=== PATIENT | female | born 1965 | race Caucasian/White ===

== ENCOUNTER 2016-11-15 10:46 | Emergency (ER) | payer OTHER ==
[~2016-11-15 10:46] MED LIST: ABILIFY5 MG PO; BUSPIRONE HCL10 MG PO; ESCITALOPRAM OX20 MG PO; FLOVENT HFA220 MCG INH; GABAPENTIN300 MG; INDERAL EQUIVAL20 MG PO; LISINOPRIL5 MG PO; MECLIZINE HCL25 M1 PO; MIRALAX EQUIVAL17 GM PO; NORCO1 TA1 PO; SYNTHROID100 MCG PO; VENTOLIN HFA IN; VICODIN HP1 TA1 PO; VITAMIN D-31000 UNIT PO
--- NOTE | 2016-11-15 12:07 | ED ORDER SUMMARY ---
..... Patient: MOE ROJAS OrderSheet [facility] VisitID: [id number] [address] [place] [address] 51y, F Registration Date/Time: 11/15/2016 ORDER SHEET Weight: 73.4 kg (stated) Allergies: Wellbutrin GENERAL ORDERS: MEDICATION ORDERS: Motrin PO 600 mg (NOW) (11:43 11/15/2016 Kasia Quiñones) (11:51 SStone R.N.) Bactrim DS PO (Tablet 800-160 mg) 1 tab (NOW) (11:43 11/15/2016 Kasia Quiñones) (11:51 SStone R.N.) Keflex PO 500 mg (NOW) (11:43 11/15/2016 Kasia Quiñones) (11:51 SStone R.N.) IV FLUIDS: ORDER SHEET NOTES: [Electronically signed by Olivia Gallego R.N. (12:15 11/15/2016)] [Electronically signed by Josh Umana Dr. (14:36 11/21/2016)] [Electronically locked/signed by Olivia Gallego R.N. (12:15 11/15/2016)]
--- NOTE | 2016-11-15 12:07 | ED NURSING NOTES ---
Clinical Report - Nurses [facility] [address] [place] [address] 11/15/2016 10:47 Patient: MOE ROJAS TRIAGE Triage time 11:00. Acuity: LEVEL 4. Chief Complaint: SKIN LESION and TENDER AREA. --11:05 Olivia Gallego R.N. 10:59 11/15/16. BP: 146/91. HR: 86. RR: 18. O2 saturation: 97%. Temp: 98.4 F. Pain level now: 02/06. --11:05 Olivia Gallego R.N. Weight: 73.4 kg stated. Height/Length: 59 inches Per Patient. BMI: 32.7. --10:59 Olivia Gallego R.N. Medications Synthroid. --11:03 Olivia Gallego R.N. Propranolol. --11:03 Olivia Gallego R.N. LIsinopril. --11:03 Olivia Gallego R.N. Allergies Wellbutrin. --11:02 Olivia Gallego R.N. History Arrived by private vehicle. Historian: patient. Reported as located on the abdomen (LLQ). ( chills yesterday, generally "Not feeling well"). 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 PAST MEDICAL HX: Asthma. ( HTN). SOCIAL HX: Light tobacco smoker. History of occasional drug use: marijuana. No alcohol use. SELF HARM ASSESSMENT: A self harm assessment was performed. The patient answered "no" to the question "Do you have thoughts of harming or killing yourself?". --11:05 Olivia Gallego R.N. PROBLEMS: Cellulitis. Herpes Zoster. Hypertension. Vertigo. Grave's Disease. --11:02 Olivia Gallego R.N. ADDITIONAL SURGERIES: Cholecystectomy. Thyroidectomy. --11:02 Olivia Gallego R.N. Interventions ID band on patient. To treatment room. --11:05 Olivia Gallego R.N. PHYSICAL ASSESSMENT GENERAL / NEURO / PSYCH: Alert. Appears anxious. Oriented X 4. HEENT: Pupils equal, round and reactive to light. RESPIRATORY: Respirations not labored. GI / : ( tender area with 6x3 inch redness, warmth with open lesion in the bottom, not draining.). SKIN: Skin is warm and dry. Single large wound with erythema, tenderness and increased warmth on the abdomen. Skin tenderness present. Increased warmth present. Erythema present. --11:07 Olivia Gallego R.N. NURSING PROGRESS NOTES Patient waiting for evaluation. ( abscessed area outlined.). --11:13 Olivia Gallego R.N. Patient gowned. Head of bed elevated. Reassurance given. Forest Aide provided for the general exam by the physician. Call light placed in reach. Side rails up. Bed placed in lowest position. Patient waiting for evaluation. --11:14 Olivia Gallego R.N. 11:51 11/15/2016 Motrin PO Tablets 600 mg given. --11:51 Olivia Gallego R.N. 11:51 11/15/2016 Bactrim DS (Sulfamethoxazole-TMP DS) PO Tablets 1 tab given. --11:51 Olivia Gallego R.N. 11:51 11/15/2016 Keflex (Cephalexin) PO Capsules 500 mg given. --11:51 Olivia Gallego R.N. DISPOSITION / DISCHARGE Departure time: 1215. Condition at departure: unchanged and stable. No learning barriers present. Discharge instructions provided and reviewed with the patient. Reviewed warnings. Reviewed medication(s) side effects information. Prescription(s) given to the patient. Treatments reviewed. Patient verbalized understanding. Written instructions provided in Welsh. The patient was discharged by the physician. She was discharged home. She left the Emergency Department ambulatory and via private vehicle. --12:14 Olivia Gallego R.N. 12:13 11/15/16. BP: 140/86. HR: 74. RR: 18. O2 saturation: 99%. Pain level now: 02/06. --12:14 Olivia Gallego R.N. Locked/Released at 11/15/2016 12:15 by Olivia Gallego R.N.
--- NOTE | 2016-11-15 12:07 | ED CLINICAL REPORT ---
Clinical Report - Physicians/Mid Levels [facility] [address] [place] [address] 11/15/2016 10:47 Patient: MOE ROJAS Time Seen: 1139. Arrived- By private vehicle. Historian- patient. HISTORY OF PRESENT ILLNESS Chief Complaint: SKIN RASH and BOIL. This started past several days and is still present and worsening. It was gradual in onset and has been constant but is not gone now. It is described as painful. It has been located on the right abdomen. No cause has been identified. No recent medication, insect bite or food exposure. Was not recently exposed to poison paulino or poison oak. Similar symptoms previously: None. Recent medical care: Not recently seen/assessed. REVIEW OF SYSTEMS No fever, chills, difficulty breathing, nausea or vomiting. All systems otherwise negative, except as recorded above. PAST HISTORY See nurses notes. Tetanus immunization status is up-to-date. Medications: LIsinopril. Propranolol. Synthroid. Allergies: Wellbutrin. SOCIAL HISTORY Never smoker. No alcohol use or drug use. No recent travel. Is a local resident. FAMILY HISTORY Negative. ADDITIONAL NOTES The nursing notes have been reviewed. PHYSICAL EXAM Vital Signs: 11/15/2016 10:59 BP: 146/91. HR: 86. RR: 18. O2 saturation: 97%. Temp: 98.4 F. Pain level now: 8/10. Oxygen saturation normal. Appearance: Alert. Oriented X3. No acute distress. Eyes: Pupils equal, round and reactive to light. Conjunctivae and eyelids normal. ENT: Ears normal. Nose normal. Pharynx normal. CVS: Normal heart rate and rhythm. Heart sounds normal. Respiratory: No respiratory distress. Breath sounds normal. Chest nontender. Abdomen: Nontender. No organomegaly. Skin: Skin warm and dry. Normal skin color. No rash. Normal skin turgor. (xcept for a small area located on the right side of the abdomen which has a small area of cellulitis and induration. Area of cellulitis measures approximately 7 cm in greatest diameter. Induration is approximately 4 cm. No area of fluctuance noted. There iis unremarkable.). Extremities: Normal external inspection. Extremities nontender. PROGRESS AND PROCEDURES Course of Care: the patient is a pleasant 51-year-old female with no pertinent past medical history presenting for evaluation of abscess and Cellulitis to the right anterior abdominal wall. On examination, no identifiablepocket offluid collection could be identified on physical examination. Bedside ultrasound was obtained. Patient with a les a lici that is approximately 1 cm deep noted. Because of the small area offluid noted in the potential to do more harm than good, I discussion with the patient in regards to management. Patient also has beenrequesting conservative management with antibiotics as well. Patient's tetanus is up-to-date. No systemic signs and symptoms. Had a discussion with the patient in regards to her findings here in the emergency department including diagnosis, home care, follow-up, and return precautions. All questions have been answered. The patient expressed understanding of these instructions and was agreeable to them. Disposition: Discharged. Condition: good. CLINICAL IMPRESSION 11/15/2016 10:59 BP: 146/91. HR: 86. RR: 18. O2 saturation: 97%. Temp: 98.4 F. Pain level now: 8/10. Hypertensive. Oxygen saturation normal. Cellulitis (right anterior abdominal wall). Single deep abscess (anterior abdominal wall). No incision and drainage. Essential hypertension. INSTRUCTIONS Warnings: GENERAL WARNINGS: Return or contact your physician immediately if your condition worsens or changes unexpectedly, if not improving as expected, or if other problems arise. Specifically return if pain, vomiting, bleeding, breathing difficulty or fever. Your Current Medications: CONTINUE TAKING THE FOLLOWING MEDICATIONS: LIsinopril*. Propranolol*. Synthroid*. Prescription Medications: Bactrim DS 800 mg / 160 mg: take 1 tablet orally every 12 hours for 10 days. No refill. Substitution is permissible. (disp 20 tabs) Keflex 500 mg: take 1 capsule orally every 8 hours for 10 days. No refill. Substitution is permissible. (disp 30 caps) OTC Medications: Acetaminophen (available over the counter): take according to label instructions. Motrin (available over the counter): take according to label instructions. Follow-up: Return to the emergency department as needed. Screening today revealed the patient's blood pressure to be in the hypertensive range. Blood pressure screening was not performed during this visit because the patient has an active diagnosis of hypertension. The patient should follow up with a primary care provider for blood pressure management. Understanding of the discharge instructions verbalized by patient. Follow-up with: [facility], , , [address], [facility], [id number] Follow up in three days. Reason for referral: recheck today's concerns. Summary of care provided to patient via paper. (Electronically signed by Josh Umana Dr. 11/21/2016 14:36)
--- NOTE | 2016-11-15 12:07 | ED CLINICAL REPORT ---
Clinical Report - Physicians/Mid Levels [facility] [address] [place] [address] 11/15/2016 10:47 Patient: MOE ROJAS Time Seen: 1139. Arrived- By private vehicle. Historian- patient. HISTORY OF PRESENT ILLNESS Chief Complaint: SKIN RASH and BOIL. This started past several days and is still present and worsening. It was gradual in onset and has been constant but is not gone now. It is described as painful. It has been located on the right abdomen. No cause has been identified. No recent medication, insect bite or food exposure. Was not recently exposed to poison paulino or poison oak. Similar symptoms previously: None. Recent medical care: Not recently seen/assessed. REVIEW OF SYSTEMS No fever, chills, difficulty breathing, nausea or vomiting. All systems otherwise negative, except as recorded above. PAST HISTORY See nurses notes. Tetanus immunization status is up-to-date. Medications: LIsinopril. Propranolol. Synthroid. Allergies: Wellbutrin. SOCIAL HISTORY Never smoker. No alcohol use or drug use. No recent travel. Is a local resident. FAMILY HISTORY Negative. ADDITIONAL NOTES The nursing notes have been reviewed. PHYSICAL EXAM Vital Signs: 11/15/2016 10:59 BP: 146/91. HR: 86. RR: 18. O2 saturation: 97%. Temp: 98.4 F. Pain level now: 8/10. Oxygen saturation normal. Appearance: Alert. Oriented X3. No acute distress. Eyes: Pupils equal, round and reactive to light. Conjunctivae and eyelids normal. ENT: Ears normal. Nose normal. Pharynx normal. CVS: Normal heart rate and rhythm. Heart sounds normal. Respiratory: No respiratory distress. Breath sounds normal. Chest nontender. Abdomen: Nontender. No organomegaly. Skin: Skin warm and dry. Normal skin color. No rash. Normal skin turgor. (xcept for a small area located on the right side of the abdomen which has a small area of cellulitis and induration. Area of cellulitis measures approximately 7 cm in greatest diameter. Induration is approximately 4 cm. No area of fluctuance noted. There iis unremarkable.). Extremities: Normal external inspection. Extremities nontender. PROGRESS AND PROCEDURES Course of Care: the patient is a pleasant 51-year-old female with no pertinent past medical history presenting for evaluation of abscess and Cellulitis to the right anterior abdominal wall. On examination, no identifiablepocket offluid collection could be identified on physical examination. Bedside ultrasound was obtained. Patient with a les a lici that is approximately 1 cm deep noted. Because of the small area offluid noted in the potential to do more harm than good, I discussion with the patient in regards to management. Patient also has beenrequesting conservative management with antibiotics as well. Patient's tetanus is up-to-date. No systemic signs and symptoms. Had a discussion with the patient in regards to her findings here in the emergency department including diagnosis, home care, follow-up, and return precautions. All questions have been answered. The patient expressed understanding of these instructions and was agreeable to them. Disposition: Discharged. Condition: good. CLINICAL IMPRESSION 11/15/2016 10:59 BP: 146/91. HR: 86. RR: 18. O2 saturation: 97%. Temp: 98.4 F. Pain level now: 8/10. Hypertensive. Oxygen saturation normal. Cellulitis (right anterior abdominal wall). Single deep abscess (anterior abdominal wall). No incision and drainage. Essential hypertension. INSTRUCTIONS Warnings: GENERAL WARNINGS: Return or contact your physician immediately if your condition worsens or changes unexpectedly, if not improving as expected, or if other problems arise. Specifically return if pain, vomiting, bleeding, breathing difficulty or fever. Your Current Medications: CONTINUE TAKING THE FOLLOWING MEDICATIONS: LIsinopril*. Propranolol*. Synthroid*. Prescription Medications: Bactrim DS 800 mg / 160 mg: take 1 tablet orally every 12 hours for 10 days. No refill. Substitution is permissible. (disp 20 tabs) Keflex 500 mg: take 1 capsule orally every 8 hours for 10 days. No refill. Substitution is permissible. (disp 30 caps) OTC Medications: Acetaminophen (available over the counter): take according to label instructions. Motrin (available over the counter): take according to label instructions. Follow-up: Return to the emergency department as needed. Screening today revealed the patient's blood pressure to be in the hypertensive range. Blood pressure screening was not performed during this visit because the patient has an active diagnosis of hypertension. The patient should follow up with a primary care provider for blood pressure management. Understanding of the discharge instructions verbalized by patient. Follow-up with: [facility], , , [address], [facility], [address] Follow up in three days. Reason for referral: recheck today's concerns. Summary of care provided to patient via paper. (Electronically signed by Josh Umana Dr. 11/21/2016 14:36)
--- NOTE | 2016-11-15 12:07 | ED ORDER SUMMARY ---
..... Patient: MOE ROJAS OrderSheet [facility] VisitID: [id number] [address] [place] [address] 51y, F Registration Date/Time: 11/15/2016 ORDER SHEET Weight: 73.4 kg (stated) Allergies: Wellbutrin GENERAL ORDERS: MEDICATION ORDERS: Motrin PO 600 mg (NOW) (11:43 11/15/2016 Kasia Quiñones) (11:51 SStone R.N.) Bactrim DS PO (Tablet 800-160 mg) 1 tab (NOW) (11:43 11/15/2016 Kasia Quiñones) (11:51 SStone R.N.) Keflex PO 500 mg (NOW) (11:43 11/15/2016 Kasia Quiñones) (11:51 SStone R.N.) IV FLUIDS: ORDER SHEET NOTES: [Electronically signed by Olivia Gallego R.N. (12:15 11/15/2016)] [Electronically signed by Josh Umana Dr. (14:36 11/21/2016)] [Electronically locked/signed by Olivia Gallego R.N. (12:15 11/15/2016)]
--- NOTE | 2016-11-15 12:07 | ED NURSING NOTES ---
Clinical Report - Nurses [facility] [address] [place] [address] 11/15/2016 10:47 Patient: MOE ROJAS TRIAGE Triage time 11:00. Acuity: LEVEL 4. Chief Complaint: SKIN LESION and TENDER AREA. --11:05 Olivia Gallego R.N. 10:59 11/15/16. BP: 146/91. HR: 86. RR: 18. O2 saturation: 97%. Temp: 98.4 F. Pain level now: 02/06. --11:05 Olivia Gallego R.N. Weight: 73.4 kg stated. Height/Length: 59 inches Per Patient. BMI: 32.7. --10:59 Olivia Gallego R.N. Medications Synthroid. --11:03 Olivia Gallego R.N. Propranolol. --11:03 Olivia Gallego R.N. LIsinopril. --11:03 Olivia Gallego R.N. Allergies Wellbutrin. --11:02 Olivia Gallego R.N. History Arrived by private vehicle. Historian: patient. Reported as located on the abdomen (LLQ). ( chills yesterday, generally "Not feeling well"). 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 PAST MEDICAL HX: Asthma. ( HTN). SOCIAL HX: Light tobacco smoker. History of occasional drug use: marijuana. No alcohol use. SELF HARM ASSESSMENT: A self harm assessment was performed. The patient answered "no" to the question "Do you have thoughts of harming or killing yourself?". --11:05 Olivia Gallego R.N. PROBLEMS: Cellulitis. Herpes Zoster. Hypertension. Vertigo. Grave's Disease. --11:02 Olivia Gallego R.N. ADDITIONAL SURGERIES: Cholecystectomy. Thyroidectomy. --11:02 Olivia Gallego R.N. Interventions ID band on patient. To treatment room. --11:05 Olivia Gallego R.N. PHYSICAL ASSESSMENT GENERAL / NEURO / PSYCH: Alert. Appears anxious. Oriented X 4. HEENT: Pupils equal, round and reactive to light. RESPIRATORY: Respirations not labored. GI / : ( tender area with 6x3 inch redness, warmth with open lesion in the bottom, not draining.). SKIN: Skin is warm and dry. Single large wound with erythema, tenderness and increased warmth on the abdomen. Skin tenderness present. Increased warmth present. Erythema present. --11:07 Olivia Gallego R.N. NURSING PROGRESS NOTES Patient waiting for evaluation. ( abscessed area outlined.). --11:13 Olivia Gallego R.N. Patient gowned. Head of bed elevated. Reassurance given. Ski Molder provided for the general exam by the physician. Call light placed in reach. Side rails up. Bed placed in lowest position. Patient waiting for evaluation. --11:14 Olivia Gallego R.N. 11:51 11/15/2016 Motrin PO Tablets 600 mg given. --11:51 Olivia Gallego R.N. 11:51 11/15/2016 Bactrim DS (Sulfamethoxazole-TMP DS) PO Tablets 1 tab given. --11:51 Olivia Gallego R.N. 11:51 11/15/2016 Keflex (Cephalexin) PO Capsules 500 mg given. --11:51 Olivia Gallego R.N. DISPOSITION / DISCHARGE Departure time: 1215. Condition at departure: unchanged and stable. No learning barriers present. Discharge instructions provided and reviewed with the patient. Reviewed warnings. Reviewed medication(s) side effects information. Prescription(s) given to the patient. Treatments reviewed. Patient verbalized understanding. Written instructions provided in Indonesian. The patient was discharged by the physician. She was discharged home. She left the Emergency Department ambulatory and via private vehicle. --12:14 Olivia Gallego R.N. 12:13 11/15/16. BP: 140/86. HR: 74. RR: 18. O2 saturation: 99%. Pain level now: 02/06. --12:14 Olivia Gallego R.N. Locked/Released at 11/15/2016 12:15 by Olivia Gallego R.N.
--- NOTE | 2016-11-21 14:36 | ED MAR SUMMARY ---
..... Medication Administration Record [facility] [address] [place] [address] Patient: MOE ROJAS Visit ID: [id number] 51y, F Weight: 73.4 kg Height/Length: 59 in BMI: 32.7 ALLERGIES: Wellbutrin Given 11:11/15/2016 Olivia Gallego R.N. Medication Administered: MOTRIN [PO], Dose: 600 mg Tablets PO. Medication Ordered: Motrin PO 600 mg (NOW). Given 11:11/15/2016 Olivia Gallego R.N. Medication Administered: BACTRIM DS [PO] (SULFAMETHOXAZOLE-TMP DS), Dose: 1 tab Tablets PO. Medication Ordered: Bactrim DS PO (Tablet 800-160 mg) 1 tab (NOW). Given 11:11/15/2016 Olivia Gallego R.N. Medication Administered: KEFLEX [PO] (CEPHALEXIN), Dose: 500 mg Capsules PO. Medication Ordered: Keflex PO 500 mg (NOW).
--- NOTE | 2016-11-21 14:36 | ED MAR SUMMARY ---
..... Medication Administration Record [facility] [address] [place] [address] Patient: MOE ROJAS Visit ID: [id number] 51y, F Weight: 73.4 kg Height/Length: 59 in BMI: 32.7 ALLERGIES: Wellbutrin Given 11:11/15/2016 Olivia Gallego R.N. Medication Administered: MOTRIN [PO], Dose: 600 mg Tablets PO. Medication Ordered: Motrin PO 600 mg (NOW). Given 11:11/15/2016 Olivia Gallego R.N. Medication Administered: BACTRIM DS [PO] (SULFAMETHOXAZOLE-TMP DS), Dose: 1 tab Tablets PO. Medication Ordered: Bactrim DS PO (Tablet 800-160 mg) 1 tab (NOW). Given 11:11/15/2016 Olivia Gallego R.N. Medication Administered: KEFLEX [PO] (CEPHALEXIN), Dose: 500 mg Capsules PO. Medication Ordered: Keflex PO 500 mg (NOW).
--- NOTE | 2016-11-21 14:36 | ED MED RECONCILIATION SUMMARY ---
Patient: MOE ROJAS Medication Reconciliation Report [facility] VisitID: [id number] [address] [place] [address] 51y, F Registration Date/Time: 11/15/2016 Weight: 73.4 kg Height/Length: 59 in. BMI: 32.7 ALLERGIES: Wellbutrin The patient's Home Medications are listed below: CONTINUE TAKING THE FOLLOWING MEDICATIONS: LIsinopril Propranolol Synthroid The source(s) of the original Home Medication information: Not obtained. The following Medications were given to the patient in the Emergency Department: Motrin [PO] PO 600 mg, administered: 11/15/2016 11:51:00 AM Bactrim DS [PO] PO 1 tab, administered: 11/15/2016 11:51:00 AM Keflex [PO] PO 500 mg, administered: 11/15/2016 11:51:00 AM The following Medications were prescribed to the patient: Acetaminophen (available over the counter): take according to label instructions. -- Josh Umana Dr. Motrin (available over the counter): take according to label instructions. -- Josh Umana Dr. Bactrim DS 800 mg / 160 mg: take 1 tablet orally every 12 hours for 10 days. No refill. Substitution is permissible.(disp 20 tabs) -- Josh Umana Dr. Keflex 500 mg: take 1 capsule orally every 8 hours for 10 days. No refill. Substitution is permissible.(disp 30 caps) -- Josh Umana Dr.
--- NOTE | 2016-11-21 14:36 | ED MED RECONCILIATION SUMMARY ---
Patient: MOE ROJAS Medication Reconciliation Report [facility] VisitID: [id number] [address] [place] [address] 51y, F Registration Date/Time: 11/15/2016 Weight: 73.4 kg Height/Length: 59 in. BMI: 32.7 ALLERGIES: Wellbutrin The patient's Home Medications are listed below: CONTINUE TAKING THE FOLLOWING MEDICATIONS: LIsinopril Propranolol Synthroid The source(s) of the original Home Medication information: Not obtained. The following Medications were given to the patient in the Emergency Department: Motrin [PO] PO 600 mg, administered: 11/15/2016 11:51:00 AM Bactrim DS [PO] PO 1 tab, administered: 11/15/2016 11:51:00 AM Keflex [PO] PO 500 mg, administered: 11/15/2016 11:51:00 AM The following Medications were prescribed to the patient: Acetaminophen (available over the counter): take according to label instructions. -- Josh Umana Dr. Motrin (available over the counter): take according to label instructions. -- Josh Umana Dr. Bactrim DS 800 mg / 160 mg: take 1 tablet orally every 12 hours for 10 days. No refill. Substitution is permissible.(disp 20 tabs) -- Josh Umana Dr. Keflex 500 mg: take 1 capsule orally every 8 hours for 10 days. No refill. Substitution is permissible.(disp 30 caps) -- Josh Umana Dr.
--- NOTE | 2016-11-21 14:36 | ED DISCHARGE INSTRUCTIONS ---
Patient: MOE ROJAS General Instructions [facility] VisitID: [id number] [address] [place] [address] 51y, F Registration Date/Time: 11/15/2016 11/15/2016 10:59 BP: 146/91. HR: 86. RR: 18. O2 saturation: 97%. Temp: 98.4 F. Pain level now: 8/10. Hypertensive. Oxygen saturation normal. Cellulitis (right anterior abdominal wall). Single deep abscess (anterior abdominal wall). No incision and drainage. Essential hypertension. INSTRUCTIONS Warnings: GENERAL WARNINGS: Return or contact your physician immediately if your condition worsens or changes unexpectedly, if not improving as expected, or if other problems arise. Specifically return if pain, vomiting, bleeding, breathing difficulty or fever. Your Current Medications: CONTINUE TAKING THE FOLLOWING MEDICATIONS: LIsinopril*. Propranolol*. Synthroid*. Prescription Medications: Bactrim DS 800 mg / 160 mg: take 1 tablet orally every 12 hours for 10 days. No refill. Substitution is permissible. (disp 20 tabs) Keflex 500 mg: take 1 capsule orally every 8 hours for 10 days. No refill. Substitution is permissible. (disp 30 caps) OTC Medications: Acetaminophen (available over the counter): take according to label instructions. Motrin (available over the counter): take according to label instructions. Follow-up: Return to the emergency department as needed. Screening today revealed the patient's blood pressure to be in the hypertensive range. Blood pressure screening was not performed during this visit because the patient has an active diagnosis of hypertension. The patient should follow up with a primary care provider for blood pressure management. Understanding of the discharge instructions verbalized by patient. Follow-up with: [facility], , , [address], [place], [id number] Follow up in three days. Reason for referral: recheck today's concerns. Summary of care provided to patient via paper. ADDITIONAL INFORMATION Cellulitis You have an infection of the skin known as cellulitis. This usually starts with a scrape, cut, insect bite, blister or other opening in the skin which becomes infected. This is a serious condition. It must be watched closely to be sure the infection is not spreading. With antibiotic treatment, the size of the red area will gradually shrink in size until the skin returns to normal. This will take 7-10 days. The red area should never increase in size once the antibiotic medicine has been started. Occasionally, an infection will be resistant to one antibiotic and another one will have to be used. Home Care: 1) Limit the use of the affected part, since excess movement can cause the infection to spread. 2) If the infection is on your leg, walk as little as possible during the first few days of the treatment. Keep your leg elevated while sitting. This will reduce swelling. 3) Take all of the antibiotic medicine exactly as directed until it is gone. Be careful not to miss any doses, especially during the first seven days. Follow Up with your doctor or this facility as directed. Check the infected area daily for the warning signs listed below. Get Prompt Medical Attention if any of the following occur: -- Spreading area of redness -- Increasing swelling or pain -- Appearance of pus or drainage -- Fever over 100.4 F (38.0 C) oral, or over 101.4 F (38.6 C) rectal, after two days on antibiotics Abscess (Antibiotic Treatment Only) An abscess (sometimes called a boil) occurs when bacteria get trapped under the skin and begin to grow. Pus forms inside the abscess as the body responds to the bacteria. An abscess can occur with an insect bite, ingrown hair, blocked oil gland, pimple, cyst, or puncture wound. In the early stages, redness and tenderness are the only symptoms. Sometimes, this stage can be treated with antibiotics alone. If the abscess does not respond to antibiotic treatment, it will need to be drained with a small cut, under local anesthesia. Home care The following will help you care for your abscess at home: Soak the wound in hot water or apply hot packs (small towel soaked in hot water) to the area for 20 minutes at a time. Do this three to four times a day. Apply antibiotic cream or ointment onto the skin 3-4 times a day, unless something else was prescribed. Some ointments include an antibiotic plus a local pain reliever. If your doctor prescribed antibiotics, do not stop taking this medication until you have finished the prescribed course or the doctor tells you to stop. You may use an qhrc-iit-hqpyjqy pain medication to control pain, unless another pain medicine was prescribed. If you have chronic liver or kidney disease or ever had a stomach ulcer or GI bleeding, talk with your doctor before using these any of these. Follow-up care Follow up with your health care provider as advised by our staff. Look at your wound each day for the signs of worsening infection listed below. When to seek medical care Get prompt medical attention if any of the following occur: An increase in redness or swelling Red streaks in the skin leading away from the abscess An increase in local pain or swelling Fever of 100.4F (38C) or higher, or as directed by your health care provider Pus or fluid coming from the abscess High Blood Pressure --Established High Blood Pressure (Hypertension) is a chronic disease. The cause is unknown in most cases. It can usually be controlled with lifestyle changes and/or medicines. Symptoms of high blood pressure may include headache, dizziness, visual changes, chest pain and shortness of breath. Sometimes it causes no symptoms at all. However, even if there are no symptoms, untreated high blood pressure increases the risk of heart attack, also known as acute myocardial infarction, or AMI, and stroke. It is a serious health risk and should not be ignored. A normal blood pressure is 120/80 or less. The first (top) number is the "systolic" pressure. The second (bottom) number is the "diastolic" pressure. Hypertension exists when either the top number is 140 or higher, OR the bottom number is 90 or higher on repeated measurements. Home Care: All patients with high blood pressure should do the following to lower their pressure. If you are on medicines, then these methods may reduce or eliminate your need for medicines in the future. Begin a weight loss program if you are overweight. Reduce your salt intake. Avoid high salt foods (olives, pickles, smoked meats, salted potato chips, etc.). Do not add salt to your food at the table. Use only small amounts of salt when cooking. Begin an exercise program. Discuss with your doctor what type of exercise program would be best for you. It doesn't have to be difficult. Even brisk walking for 20 minutes three times a week is a good form of exercise. Avoid medicines which contain heart stimulants. This includes many cold and sinus decongestant pills and sprays as well as diet pills. Check the warnings about hypertension on the label. Stimulants such as amphetamine or cocaine could be lethal for someone with hypertension. Never take these. Limit your caffeine intake or switch to caffeine-free products. Stop smoking. If you are a long-time smoker, this can be hard. Enroll in a stop-smoking program to improve your chance of success. Learning how to handle stress better is an important part of any program to lower blood pressure. Learn about relaxation methods such as meditation, yoga or biofeedback. If medicines were prescribed, take them exactly as directed. Missing doses may cause your blood pressure get out of control. Consider buying an automatic blood pressure machine (available at most pharmacies). Use this to monitor your blood pressure at home and report the results to your doctor. Follow Up: Regular visits to your own physician for blood pressure checks and medicine adjustment is an important part of your care. Make a follow-up appointment as directed by our staff. Get Prompt Medical Attention if any of the following occur: Chest pain or shortness of breath Severe headache Throbbing or rushing sound in the ears Nosebleed Sudden severe abdominal pain Extreme drowsiness, confusion or fainting Dizziness or vertigo (dizziness with spinning sensation) Weakness of an arm or leg or one side of the face Difficulty with speech or vision Sulfamethoxazole, Trimethoprim Oral tablet What is this medicine? SULFAMETHOXAZOLE; TRIMETHOPRIM or SMX-TMP (suhl fuh meth OK alejandra zohl; trye METH oh prim) is a combination of a sulfonamide antibiotic and a second antibiotic, trimethoprim. It is used to treat or prevent certain kinds of bacterial infections. It will not work for colds, flu, or other viral infections. How should I use this medicine? Take this medicine by mouth with a full glass of water. Follow the directions on the prescription label. Take your medicine at regular intervals. Do not take it more often than directed. Do not skip doses or stop your medicine early. Talk to your rib trim separator regarding the use of this medicine in children. Special care may be needed. This medicine has been used in children as young as 2 months of age. What side effects may I notice from receiving this medicine? Side effects that you should report to your doctor or health childcare center administrator as soon as possible: allergic reactions like skin rash or hives, swelling of the face, lips, or tongue breathing problems fever or chills, sore throat irregular heartbeat, chest pain joint or muscle pain pain or difficulty passing urine red pinpoint spots on skin redness, blistering, peeling or loosening of the skin, including inside the mouth unusual bleeding or bruising unusually weak or tired yellowing of the eyes or skin Side effects that usually do not require medical attention (report to your doctor or health childcare center administrator if they continue or are bothersome): diarrhea dizziness headache loss of appetite nausea, vomiting nervousness What may interact with this medicine? Do not take this medicine with any of the following medications: aminobenzoate potassium dofetilide metronidazole This medicine may also interact with the following medications: EMILEE inhibitors like benazepril, enalapril, lisinopril, and ramipril cyclosporine digoxin diuretics indomethacin medicines for diabetes methenamine methotrexate phenytoin potassium supplements pyrimethamine sulfinpyrazone tricyclic antidepressants warfarin What if I miss a dose? If you miss a dose, take it as soon as you can. If it is almost time for your next dose, take only that dose. Do not take double or extra doses. Where should I keep my medicine? Keep out of the reach of children. Store at room temperature between 20 to 25 degrees C (68 to 77 degrees F). Protect from light. Throw away any unused medicine after the expiration date. What should I tell my health care provider before I take this medicine? They need to know if you have any of these conditions: anemia asthma being treated with anticonvulsants if you frequently drink alcohol containing drinks kidney disease liver disease low level of folic acid or izyfiby-[id number] dehydrogenase poor nutrition or malabsorption porphyria severe allergies thyroid disorder an unusual or allergic reaction to sulfamethoxazole, trimethoprim, sulfa drugs, other medicines, foods, dyes, or preservatives or trying to get breast-feeding What should I watch for while using this medicine? Tell your doctor or health childcare center administrator if your symptoms do not improve. Drink several glasses of water a day to reduce the risk of kidney problems. Do not treat diarrhea with over the counter products. Contact your doctor if you have diarrhea that lasts more than 2 days or if it is severe and watery. This medicine can make you more sensitive to the sun. Keep out of the sun. If you cannot avoid being in the sun, wear protective clothing and use a sunscreen. Do not use sun lamps or tanning beds/booths. Cephalexin Monohydrate Oral tablet What is this medicine? CEPHALEXIN (sef a HENRIQUE in) is a cephalosporin antibiotic. It is used to treat certain kinds of bacterial infections It will not work for colds, flu, or other viral infections. How should I use this medicine? Take this medicine by mouth with a full glass of water. Follow the directions on the prescription label. This medicine can be taken with or without food. Take your medicine at regular intervals. Do not take your medicine more often than directed. Take all of your medicine as directed even if you think you are better. Do not skip doses or stop your medicine early. Talk to your rib trim separator regarding the use of this medicine in children. While this drug may be prescribed for selected conditions, precautions do apply. What side effects may I notice from receiving this medicine? Side effects that you should report to your doctor or health childcare center administrator as soon as possible: allergic reactions like skin rash, itching or hives, swelling of the face, lips, or tongue breathing problems pain or trouble passing urine redness, blistering, peeling or loosening of the skin, including inside the mouth severe or watery diarrhea unusually weak or tired yellowing of the eyes, skin Side effects that usually do not require medical attention (report to your doctor or health childcare center administrator if they continue or are bothersome): gas or heartburn genital or anal irritation headache joint or muscle pain nausea, vomiting What may interact with this medicine? probenecid some other antibiotics What if I miss a dose? If you miss a dose, take it as soon as you can. If it is almost time for your next dose, take only that dose. Do not take double or extra doses. There should be at least 4 to 6 hours between doses. Where should I keep my medicine? Keep out of the reach of children. Store at room temperature between 59 and 86 degrees F (15 and 30 degrees C). Throw away any unused medicine after the expiration date. What should I tell my health care provider before I take this medicine? They need to know if you have any of these conditions: kidney disease stomach or intestine problems, especially colitis an unusual or allergic reaction to cephalexin, other cephalosporins, penicillins, other antibiotics, medicines, foods, dyes or preservatives or trying to get breast-feeding What should I watch for while using this medicine? Tell your doctor or health childcare center administrator if your symptoms do not begin to improve in a few days. Do not treat diarrhea with over the counter products. Contact your doctor if you have diarrhea that lasts more than 2 days or if it is severe and watery. If you have diabetes, you may get a false-positive result for sugar in your urine. Check with your doctor or health childcare center administrator. You have been given the following additional information: Cellulitis Abscess, Antiobiotic Treatment Only Hypertension, Established Sulfamethoxazole, Trimethoprim Oral tablet Cephalexin Monohydrate Oral tablet (Electronically signed by Josh Umana Dr. 11/21/2016 14:36)
== END 2016-11-15 12:15 | disposition home or self-care (01) ==
LOC: ED SRH 10:46
DX: L03.311 Cellulitis of abdominal wall (principal); L02.211 Cutaneous abscess of abdominal wall; I10 Essential (primary) hypertension; Z79.899 Other long term (current) drug therapy